=== PATIENT | female | born 1980 | race Caucasian/White ===

== ENCOUNTER 2021-01-05 16:39 | Emergency (ER) | payer SELFPAY ==
[~2021-01-05] VITALS: Ht 167.6 cm; Wt 61.0 kg
[2021-01-05] MEDS ORDERED: METHYLPREDNISOLONE SOD SUCC 125 MG/2 ML VIAL IM ONE (17:15)
[2021-01-05 21:18] VITALS: BP 115/87
== END 2021-01-05 21:20 | disposition home or self-care (01) ==
LOC: ER 17:00
DX: L50.0 Allergic urticaria (principal)
CPT/HCPCS: 96372; 99283; J2930; Z7610